=== PATIENT | male | born 1965 | race African-American/Black ===

== ENCOUNTER 2016-08-07 21:08 | Emergency (ER) | payer SELFPAY ==
[~2016-08-07] VITALS: Ht 175.3 cm; Wt 54.4 kg
[2016-08-07 21:07] VITALS: BP 46/33
[2016-08-07] MEDS ORDERED: NITROSTAT0.6 MG SL (21:49)
[2016-08-07] MEDS ORDERED: ZOFRAN8 MG ORAL (21:51)
[2016-08-07] MEDS ORDERED: TYLENOL EXTRA500 MG ORAL (21:55)
[2016-08-07] MEDS ORDERED: LASIX20 MG IV (21:55)
[2016-08-07] MEDS ORDERED: MORPHINE IR15 MG ORAL (21:55)
[2016-08-07] MEDS ORDERED: XARELTO20 MG ORAL (21:55)
[2016-08-07] MEDS ORDERED: OXYCONTIN30 MG ORAL (21:55)
[2016-08-07 22:22] LABS: ALANINE AMINOTRANSFERASE 40 U/L (3-41); ALBUMIN/GLOBULIN RATIO 0.8 (1.0-2.7); ASPARTATE AMINO TRANSFERASE 66 U/L (5-40); CALCIUM 9.4 mg/dL (8.6-10.2); CARBON DIOXIDE 17 mEQ/L (20-30); CHLORIDE 89 mEQ/L (98-107); CREATININE 6.4 mg/dL (0.7-1.2); HEMOLYSIS 62; SODIUM 138 mEQ/L (135-145); TOTAL PROTEIN 6.2 g/dL (6.6-8.7); TROPONIN I < 0.30 ng/mL (<=0.30)
[2016-08-07 22:27] LABS: ANION GAP 32 (5-15)
[2016-08-07 22:32] LABS: GLOMERULAR FILTRATION RATE 11.3 mL/min (>60); POTASSIUM 8.3 mEQ/L (3.4-4.9)
[2016-08-07 22:59] LABS: BILIRUBIN,DIRECT 0.9 mg/dL (0.1-0.3)
--- NOTE | 2016-08-07 23:35 | Emergency Room Report ---
History of Present Illness General Chief Complaint: Dyspnea/Respdistress Source: Family Member, Medical Record, EMS Present Illness HPI Patient presents from home with reports of respiratory distress Patient is in hospice care Lung cancer with metastatic disease vision himself presents in agonal respiration is nonverbal Hospice nurse contacted the emergency room I spoke with her Also speaking to family reports the patient had been worsening over the past several days not eating had increased diarrhea Patient was given morphine earlier today And the felt that the bleeding has become worse And called 911 Allergies: Coded Allergies: No Known Allergies (Unverified , 08/07/16) Patient History Limited by: medical condition Past Medical History: see triage record Pertinent Family History: unable to obtain Reviewed Nursing Documentation: PMH: Agreed, PSxH: Agreed Nursing Documentation-PMH Past Medical History: No History, Except For Review of Systems All Other Systems: limited - Other than the ones mentioned in the history of present illness all others are reviewed however they do stay limited due to the patient's mental status Physical Exam Vital Signs Date Time Temp Pulse Resp B/P Pulse Ox O2 Delivery O2 Flow Rate FiO2 08/07/16 20:53 97.9 92 20 134/103 100 08/07/16 21:07 Nasal Cannula 4.0 Sp02 EP Interpretation: reviewed, normal General Appearance: severe distress - Patient has agonal respiration, hypotensive Head: normocephalic, atraumatic Eyes: bilateral eye other - Right pupil is 3 mm nonreactive, left pupil is blown up to 6 mm nonreactive ENT: dry mucus membranes Neck: supple Respiratory: decreased breath sounds - With decreased respiratory effort, agonal respiration in appearance at approximately 6 breaths a minute Cardiovascular #1: regular rate, rhythm, other - Faint pulses distally Gastrointestinal: soft, no mass Musculoskeletal: other - Patient has GCS of 3 unresponsive not moving extremities, Neurologic: other - GCS of 3, unresponsive Skin: no rash, jaundice Lymphatic: no adenopathy Medical Decision Making Diagnostic Impression: Primary Impression: Respiratory failure Additional Impression: Cardiopulmonary arrest ER Course Upon arrival the patient is in agonal respiration Hypotensive IV was established and hydration initiated I discussed the case with the family Patient continues to be a full DO NOT RESUSCITATE After continued evaluation in the emergency room patient respirations became more agonal, bradycardic and essentially became asystolic Family was at bedside Patient at 10:07 Fixed and dilated pupils, no respirations, no palpable pulses Patient was full DO NOT RESUSCITATE and further CPR was not performed Patient peacefully I was at bedside the family Patient's chemistry was performed after initial evaluation Patient showing evidence of renal failure Labs Test 08/07/16 21:55 Sodium Level 138 mEQ/L (135-145) Potassium Level 8.3 mEQ/L (3.4-4.9) Chloride Level 89 mEQ/L (98-107) Carbon Dioxide Level 17 mEQ/L (20-30) Anion Gap 32 (5-15) Blood Urea Nitrogen 179 mg/dL (7-23) Creatinine 6.4 mg/dL (0.7-1.2) Estimat Glomerular Filtration Rate 11.3 mL/min (>60) Glucose Level 125 mg/dL (74-106) Calcium Level 9.4 mg/dL (8.6-10.2) Total Bilirubin 2.2 mg/dL (0.0-1.2) Direct Bilirubin 0.9 mg/dL (0.1-0.3) Aspartate Amino Transf (AST/SGOT) 66 U/L (5-40) Alanine Aminotransferase (ALT/SGPT) 40 U/L (3-41) Alkaline Phosphatase 80 U/L (40-129) Total Creatine Kinase 1035 U/L (38-174) Troponin I < 0.30 ng/mL (<=0.30) Total Protein 6.2 g/dL (6.6-8.7) Albumin 2.8 g/dL (3.5-5.2) Globulin 3.4 g/dL Albumin/Globulin Ratio 0.8 (1.0-2.7) Rhythm Strip Diag. Results EP Interpretation: yes Rate: 105 Rhythm: no PVC's, no ectopy, other - sinus tach Last Vital Signs Date Time Temp Pulse Resp B/P Pulse Ox O2 Delivery O2 Flow Rate FiO2 08/07/16 21:07 85 19 46/33 96 Nasal Cannula 4.0 08/07/16 20:53 97.9 Status: unchanged Disposition: Condition: Critical Referrals: NON PHYSICIAN (PCP) ZHAO PARIS D.O. Aug 07, 2016 23:35
[2016-08-08 00:40] VITALS: BP 0/0
--- NOTE | 2016-08-08 17:51 | Cardiology Report ---
APPROVED REPORT EKG Measurement Heart [id number] Sinus tachycardia Right atrial enlargement Borderline ECG
== END 2016-08-08 00:05 | disposition expired ==
LOC: EDBD 21:08 → EMR 21:40 → CANBEDREQ 22:32 → EMR 08-08 00:05
DX: J96.90 Respiratory failure, unspecified, unspecified whether with hypoxia or hypercapnia (principal); I46.9 Cardiac arrest, cause unspecified; I95.9 Hypotension, unspecified; Z66 Do not resuscitate; C34.90 Malignant neoplasm of unspecified part of unspecified bronchus or lung; C79.9 Secondary malignant neoplasm of unspecified site
CPT/HCPCS: 36415; 80053; 82248; 82550; 84484; 93005; 96374